=== PATIENT | female | born 1990 | race Caucasian/White ===

== ENCOUNTER 2017-08-31 13:00 | Emergency (ER) | payer OTHER ==
[~2017-08-31] VITALS: Ht 160 cm; Wt 62.6 kg
[2017-08-31 14:51] LABS: BASOPHILS # (AUTO) 0.03 x10^3/uL (0-0.1); BASOPHILS % (AUTO) 0 % (0-1); EOSINOPHILS # (AUTO) 0.02 x10^3/uL (0-0.4); EOSINOPHILS % (AUTO) 0 % (1-7); LYMPHOCYTES # (AUTO) 1.24 x10^3/uL (1-3.4); LYMPHOCYTES % (AUTO) 8 % (22-44); MD NO; MEAN CORPUSCULAR HEMOGLOBIN 32.9 pg (27.0-34.8); MEAN CORPUSCULAR VOLUME 96.8 fL (80-100); MEAN PLATELET VOLUME 7.8 fL (7.4-10.4); MONOCYTES # (AUTO) 0.33 x10^3/uL (0.2-0.8); MONOCYTES % (AUTO) 2 % (2-9); NEUTROPHILS # (AUTO) 13.74 x10^3/uL (1.8-6.8); NEUTROPHILS % (AUTO) 90 % (42-75); PLATELET COUNT 383 x10^3/uL (130-400); RED BLOOD COUNT 4.45 x10^6/uL (3.82-5.3); RED CELL DISTRIBUTION WIDTH 13.6 % (9.6-15.2)
[2017-08-31] MEDS ORDERED: ONDANSETRON 2MG/ML, 2ML ONE (14:53)
[2017-08-31 14:57] LABS: CHLORIDE 101 mmol/L (98-107)
[2017-08-31] MEDS ORDERED: SODIUM CHLORIDE 0.9% 1,000ML IVBOLUS ONE (15:00)
[2017-08-31] MEDS ORDERED: ONDANSETRON 2MG/ML, 2ML IVPush ONE (15:00)
[2017-08-31] MEDS ORDERED: SODIUM CHLORIDE FLUSH 10ML SYR IVF ONE (15:00)
[2017-08-31 15:04] LABS: ALANINE AMINOTRANSFERASE 22 U/L (12-78); ALBUMIN 4.3 g/dL (3.4-5.0); ANION GAP 16 mmol/L (5-15); CALCIUM 9.3 mg/dL (8.5-10.1)
[2017-08-31 15:21] LABS: ALKALINE PHOSPHATASE 50 U/L (45-117); BILIRUBIN,TOTAL 0.9 mg/dL (0.2-1.0); TOTAL PROTEIN 8.3 g/dL (6.4-8.2)
[2017-08-31] MEDS ORDERED: ACETAMINOPHEN 650 MG/20.3 ML UDC ONE (15:33)
[2017-08-31] MEDS ORDERED: ONDANSETRON ODT 4 MG PO ONE (16:30)
[2017-08-31] MEDS ORDERED: ONDANSETRON ODT 4 MG ONE (16:40)
[2017-08-31 18:05] LABS: CULTURE INDICATED? YES; MICROSCOPIC INDICATED
[2017-08-31 18:28] VITALS: BP 132/78
== END 2017-08-31 18:32 | disposition home or self-care (01) ==
LOC: ED 15:39
DX: O26.892 Other specified pregnancy related conditions, second trimester (principal); O21.0 Mild hyperemesis gravidarum; R82.99 Other abnormal findings in urine; E86.0 Dehydration; Z3A.17 17 weeks gestation of pregnancy
CPT/HCPCS: 36415; 80053; 81001; 83690; 84702; 85025; 87086; 96361; 96374; 99285; J2405; J7030; Q0162